=== PATIENT | female | born 1970 | race Caucasian/White ===

== ENCOUNTER 2016-11-11 20:15 | Emergency (ER) | payer OTHER ==
[~2016-11-11] VITALS: Ht 162.6 cm; Wt 77.3 kg
[~2016-11-11 20:15] MED LIST: HYDR1TAB69 PO; POLY17PO13 PO
[2016-11-11 20:38] VITALS: BP 124/89; PULSE 77; RESP 20; O2SAT 100
[2016-11-11] MEDS ORDERED: Ondansetron 2 mg/mL 2 mL Inj ONE (21:06)
--- NOTE | 2016-11-11 21:21 | ED.REPORT ---
HPI-GI Bleed Date of Service November 11, 2016 ED Provider: Jules Michael MD A 46 year old female with a medical history including migraines, GERD, and fibromyalgia presents to the ED with a headache onset 1730 this evening. Associated symptoms include two hours of nausea and vomiting with a few episodes of hematemesis just prior to arrival. The patient's headache is similar to previous migraines, although the intensity of the vomiting is new. She denies other symptoms. The patient has been taking Excedrin 4x daily for the past few days in an attempt to avoid the migraine. Nursing Notes Stated Complaint: THROWING UP,BLOOD Chief Complaint: Female Abdominal Pain Nursing Notes Reviewed: Yes Allergies: Coded Allergies: metoclopramide (Verified Allergy, Severe, 01/28/13) Milk Containing Products (Verified Allergy, 01/28/13) Soy (Verified Allergy, 01/28/13) gluten (Verified Allergy, 01/28/13) Scheduled Hydrocod/APAP-Expunged, Do Not Renew! (Hydrocod/APAP 5/500-Expunged, Do Not Renew!) 1 Each Tablet 1-2 EACH PO Q 4-6HRS PRN PEG 3350-Expunged Drug, Do Not Renew! (Miralax-Expunged Drug, Do Not Renew!) 12 Ea Powd.pack 12 EA PO DAILY General Time Seen by Provider: 21:15 Chief Complaint Chief Complaint: Other (Headache) Hx Obtained From: Patient Arrived By: Walk-in Onset Occurred: 1 - 4 hours ago Symptom Duration: Since onset Location: : Diffuse (Headache) Quality: Aching Severity: Current: Moderate Severity: Maximum: Moderate Pertinent Negative: Relieved by nothing Recent Healthcare: No recent doctor visit Similar Sx Previous: Yes Past Medical History Past Medical History Migraines Fibromyalgia GERD Hiatal hernia Kidney stones Past Surgical History Sinus surgery x3 Hysterectomy Bilateral Tubal Ligation Vulvar vestibulectomy Left salpingo-oophorectomy. Wrist surgeries Smoking History Unknown if Ever Smoker Social History Other Social History: Good social support Ambulatory Status Independent Review of Systems Constitutional: Denies: Fever Respiratory: Denies: Non-productive cough, Shortness of breath GI: Reports: Hematemesis, Nausea, Vomiting Neurologic: Reports: Headache Complete sys rev & neg: except as marked. Physical Exam Initial Vital Signs Vital Signs (First) Date Time Temp Pulse Resp B/P Pulse Ox O2 Delivery O2 Flow Rate FiO2 11/11/16 20:38 36.0 77 20 124/89 100 Room Air Initial VS: Reviewed, Vital signs normal Neck: Supple, Full range of motion Skin: Warm, Dry, No cyanosis Psychiatric: Mood/affect normal, Behavior normal, Normal thought content General/Constitutional: Awake, Alert Patient is occasionally gagging Respiratory / Chest: Breath sounds NL, Breath sounds = bilat, No respiratory distress, No stridor Cardiovascular: Heart rate NL, Regular rhythm, Heart sounds NL Abdomen: Soft, Non-tender Head / Eyes: Atraumatic, Normocephalic, PERRL Pupils: Negative: Photophobia L, Photophobia R ENT: Airway patent, Mucous membranes moist, Pharynx NL Pharynx / Tonsils / Uvula: Negative: Tonsillar erythema L, Tonsillar erythema R , Tonsillar swelling L, Tonsillar swelling R Neurologic: Oriented X3, Speech NL, No motor deficits, No sensory deficits, CN II - XII intact Interpretation & Diagnostics Lab Results Interpretation Result Diagram: 11/11/16 2100 11/11/16 2100 Test 11/11/16 21:00 White Blood Count 7.2th/mm3 (3.8-10.1) Red Blood Count 5.05mil/mm3 (3.90-5.20) Hemoglobin 15.9g/dL (12.0-15.6) Hematocrit 44.5% (35.0-46.0) Mean Corpuscular Volume 88.1fL (81-100) Mean Corpuscular Hemoglobin 31.5pg (27.0-35.0) Mean Corpuscular Hemoglobin Concent 35.7% (32.0-37.0) Red Cell Distribution Width 12.6% (12.3-15.4) Platelet Count 284bil/L (150-400) Neutrophils (%) (Auto) 51.8% (40-74) Lymphocytes (%) (Auto) 42.1% (14-46) Monocytes (%) (Auto) 4.3% (4-12) Eosinophils (%) (Auto) 1.1% (0-5) Basophils (%) (Auto) 0.7% (0-3) Hold Purple Top Tube Received (Received) Hold Blue Top Tube Received (Received) Sodium Level 140mEq/L (134-144) Potassium Level 3.9mEq/L (3.5-5.2) Chloride Level 101mEq/L (97-108) Carbon Dioxide Level 24mmol/L (18-29) Blood Urea Nitrogen 16mg/dL (6-24) Creatinine 0.75mg/dL (0.57-1.00) Estimat Glomerular Filtration Rate 120mL/min (>59) Glucose Level 112mg/dL (60-99) Calcium Level 9.9mg/dL (8.5-10.1) Magnesium Level 2.0mg/dL (1.6-2.6) Total Bilirubin 0.3mg/dL (0.0-1.2) Aspartate Amino Transf (AST/SGOT) 25U/L (0-50) Alanine Aminotransferase (ALT/SGPT) 15U/L (0-32) Alkaline Phosphatase 103U/L (25-150) Total Protein 7.8g/dL (6.4-8.4) Albumin 4.7g/dL (3.4-5.0) Lipase 19U/L (13-60) Hold Red Top Tube Received (Received) Hold Newman Top Tube Received (Received) Lab values outside NL range: no clinical significance. Re-Eval/Medical Decision Med Decision/Clinical Course 46-year-old female with a headache for the last several days. She has had some nausea and vomiting associated with it. Tonight she had more violent vomiting with epigastric pain and some blood in the vomit. She was given medications for her headache and was hydrated with 2 L of fluid. She was also given IV antacid treatment. This likely represents a Jennifer-Nixon tear. I see no evidence of ongoing blood loss at this time. Source of Hx: Old records Re-Evaluation/Progress #1: Time of Eval: 23:01 Patient Status: Condition improved Re-Evaluation/Progress Note: The patient's nausea and vomiting has resolved. She now reports abdominal pain every time she swallows. Re-Evaluation/Progress #2: Time of Eval: 01:54 Patient Status: Condition improved Re-Evaluation/Progress Note: Discussed with patient lab results, diagnosis, and plan for discharge. Follow-up and return to the ER instructions given. Patient agrees with plan for care and all questions were addressed. Counseled Regarding: Diagnosis, Lab results, Need for follow-up, When/why to return to ED Discharge & Departure Impression: Primary Impression: Jennifer-Nixon tear Additional Impression: Headache Headache type: unspecified Headache chronicity pattern: acute headache Intractability: not intractable Qualified Code: R51 - Headache Disposition: Home Discharge Condition All VS Reviewed: Yes Condition: Improved Patient Instructions: Jennifer-Nixon Syndrome (ED) Additional Instructions: Thank you for entrusting us with your care. Drink adequate fluids to remain hydrated. Omeprazole 40 mg twice daily for the next few days then cut back to 20 mg once or twice daily. Viscous lidocaine 1 teaspoon every 2-4 hours as needed for throat pain. Do not use more frequently than that. Call your primary care provider tomorrow for a follow-up appointment. Return to the ER with any new or worsening symptoms. Referrals: Amadeo Gaona MD (PCP) [facility] Attestation Portions of this note were transcribed by Danielle Beckman. I, Dr. Michael, personally performed the history, physical exam, and medical decision-making; I reviewed and confirmed the accuracy of the information in the transcribed note. Signed by: John Celis, 11/12/2016, 03:40 copies to: Amadeo Gaona MD, Howard L MD November 11, 2016 21:21 DANIELLE BECKMAN November 11, 2016 21:28
[2016-11-11] MEDS ORDERED: 0.9% Sodium Chloride 1,000 ML IV ONE ×2 (21:23→23:05)
[2016-11-11] MEDS ORDERED: Ondansetron 2 mg/mL 2 mL Inj IVPUSH PRN (21:25)
[2016-11-11] MEDS ORDERED: Ketorolac 15 mg/mL Inj IVPUSH ONE (21:25)
[2016-11-11] MEDS ORDERED: Pantoprazole 4 mg/mL 10 mL Inj IVPUSH ONE (21:35)
[2016-11-11] MEDS ORDERED: LidocaineVisc 2%:Antacid 1:1 10 mL Syringe PO ONE (21:35)
[2016-11-11 21:36] LABS: BASOPHILS % (AUTO) 0.7 % (0-3); EOSINOPHILS % (AUTO) 1.1 % (0-5); MONOCYTES % (AUTO) 4.3 % (4-12); Mean Corpuscular Hemoglobin 31.5 pg (27.0-35.0); Mean Corpuscular Volume 88.1 fL (81-100); NEUTROPHILS % (AUTO) 51.8 % (40-74); Platelet Count 284 bil/L (150-400)
[2016-11-11] MEDS ORDERED: Dexamethasone 10 mg/mL Inj IVPUSH ONE (23:05)
[2016-11-11 23:46] VITALS: BP 113/78; PULSE 62; RESP 16; O2SAT 99
[2016-11-12] MEDS ORDERED: Acetaminophen IV 1,000 MG in IV Premix 1 EACH IV ONE (00:20)
[2016-11-12] MEDS ORDERED: LidocaineVisc 2%:Antacid 1:1 10 mL Syringe PO ONE (02:00)
[2016-11-12 03:15] VITALS: BP 101/66; PULSE 78; RESP 16; O2SAT 98
== END 2016-11-12 03:07 | disposition home or self-care (01) ==
LOC: SED 20:15
DX: K22.6 Gastro-esophageal laceration-hemorrhage syndrome (principal); R51 Headache; K21.9 Gastro-esophageal reflux disease without esophagitis; M79.7 Fibromyalgia; Z87.19 Personal history of other diseases of the digestive system; Z88.8 Allergy status to other drugs, medicaments and biological substances; Z91.011 Allergy to milk products; Z91.018 Allergy to other foods
CPT/HCPCS: 36415; 80053; 83690; 83735; 85025; 96361; 96374; 96375; 99285; J0131; J1100; J1885; J2060; J2405; J7030